=== PATIENT | male | born 1940 | race Caucasian/White ===

== ENCOUNTER 2022-01-28 08:34 | Outpatient (CLI) | payer MEDICARE, BC, SELFPAY ==
[2022-01-28 09:42] VITALS: BMI 35.5
--- NOTE | 2022-01-28 09:55 | NMCV_ITS ---
NM shweta perf SPECT r/s* [id number] Riki De Souza Age: 81 Gender: M : 1940 Exam Date: 01/28/2022 10:12 Ordering Phys: Annelise Walters MD ([email or web address]) Technologist: KAN Sepulveda Exam Location: [facility] [address] Indications: CHEST PAIN STRESS TEST [facility] IMAGE PROTOCOL Rest/Stress 1 Lexiscan Day Radiopharmaceutical Dose (mCi) Administration Site Administered by Rest: Tc-99m 10.7 IV KAN Connell Sestamibi Stress:Tc-99m 32.7 IV KAN Connell Sestamibi Rest: 28-Jan-2022 60 Discovery 630 Stress: 28-Jan-2022 30 Discovery 630 0.4mg Lexiscan. Images obtained in supine and prone position. SPECT RESULTS Technical Quality: Excellent Raw Data Analysis: Normal Image Corrections: No attenuation or motion correction applied Summed Stress Score: 1 Summed Rest Score: 0 Summed Difference Score: 1 PERFUSION FINDINGS SPECT images demonstrate homogeneous tracer distribution throughout the myocardium. FUNCTIONAL RESULTS (calculated via Gated SPECT) Stress Image LV EF (%): 49 Stress EDV (mL):187 TID: 1.04 Stress ESV (mL):96 FUNCTIONAL FINDINGS: The left ventricle is normal in size. Transient Ischemia Dilatation of 1. There is mildly reduced left ventricular systolic function. The left ventricular ejection fraction is mildly reduced with a value of 49%. No regional wall motion abnormality. Increased end-diastolic and end-systolic volumes. IMPRESSIONS 1. Myocardial perfusion imaging is normal. 2. The left ventricular ejection fraction is mildly reduced with a value of 49%. 3. No regional wall motion abnormality. 4. No EKG changes with Lexiscan infusion. Refer to separate report for details. 5. No prior similar studies to compare. Elvira Gonzalez MD (Electronically Signed) Final Date: 31 January 2022 16:48 S
--- NOTE | 2022-01-28 09:55 | ECG_ITS ---
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 Interpretive Statements Name of study: Lexiscan stress test Indication: Exertional shortness of breath PROCEDURE: At the baseline, the blood pressure was 183/99 mmHg with a heart rate of 62 bpm. The electrocardiogram showed normal sinus rhythm, leftward axis. 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 The Lexiscan was infused over a period of 20 seconds. A total of 0.4 milligrams of Lexiscan was infused. The stress phase was continued for a total of 5 minutes. Heart rate at the end of the stress phase was 76 bpm with a blood pressure of 198/102 mmHg. The EKG at the peak infusion revealed sinus rhythm with no significant ST-T wave changes. Sestamibi was injected 20 seconds after the Lexiscan infusion. Blood pressure at the end of the recovery phase was 198/102 mmHg with a heart rate of 75 beats per minute. CONCLUSION: 1. No significant EKG changes with the LexiScan infusion. 2. No LexiScan induced chest pain or cardiac arrhythmia. 3. Baseline hypertension with normal blood pressure and heart rate response. 4. Sestamibi/sestamibi perfusion scan pending; see separate report. Electronically Signed On 01-31-2022 16:26:53 [employer] by Elvira Gonzalez M.D. [email or web address]
[2022-01-28] MEDS: regadenoson 0.4 Mg/5 ml Syringe IVP (10:53)
[2022-01-28 11:01] VITALS: BP 183/99; PULSE 60
== END 2022-01-28 08:35 | disposition home or self-care (01) ==
LOC: RAD 08:35 → CDL 09:07
PROVIDERS: Family Provider Internal Medicine; PCP Internal Medicine; Visit Provider Internal Medicine Cardiovascular Disease
DX: R07.9 Chest pain, unspecified (principal); R06.02 Shortness of breath
CPT/HCPCS: 78452; 93017; A9500; J2785

== ENCOUNTER 2022-02-07 10:46 | Outpatient (CLI) | payer MEDICARE, BC, SELFPAY ==
--- NOTE | 2022-02-07 10:53 | USCV_ITS ---
Riki De Souza Age: 81 Gender: M : 1940 Exam Date: 02/07/2022 11:10 Ordering Phys: Annelise Walters MD ([email or web address]) Technologist: FERNANDO [place] [facility] [place]: sob BP: 167 / 82 HR: 66 Rhythm: Sinus Technical Quality: Adequate MEASUREMENTS (Male / Female) Normal Values 2D ECHO LV Diastolic Diameter PLAX 4.2 cm 4.2 - 5.9 / 3.9 - 5.3 cm LV Systolic Diameter PLAX 2.8 cm IVS Diastolic Thickness 1.9 cm 0.6 - 1.0 / 0.6 - 0.9 cm IVS Systolic Thickness 2.3 cm LVPW Diastolic Thickness 1.7 cm 0.6 - 1.0 / 0.6 - 0.9 cm LVPW Systolic Thickness 1.9 cm LVOT Diameter 2.0 cm LV Ejection Fraction 2D Teich 62.3 % LV Ejection Fraction MOD 2C 53.3 % LV Ejection Fraction 2C AL 55.4 % LA Diameter 4.1 cm LA Width 4.1 cm LA Height 5.8 cm RA Width 3.5 cm RA Height 5.5 cm Aorta at Sinotubular Diameter 3.1 cm M-MODE Aortic Annulus Diameter 3.3 cm LA Ao Ratio MM 1.2 MV E Point Septal Separation 1.4 cm DOPPLER AV Peak Velocity 119.0 cm/s LVOT Peak Velocity 97.0 cm/s AV Area Cont Eq vti 2.8 cm squared AV Area Cont Eq pk 2.6 cm squared MV Peak Velocity 84.0 cm/s MV Area PHT 5.0 cm squared Mitral E to A Ratio 0.8 MV E' Velocity 40.0 cm/s Mitral E to MV E' Ratio 7.9 Mitral E to LV E' Lateral Ratio 6.5 Mitral E to LV E' Septal Ratio 10.0 TR Peak Velocity 246.3 cm/s TR Peak Gradient 24.3 mmHg TR Mean Velocity 170.7 cm/s TR Mean Gradient 14.1 mmHg TR Velocity Time Integral 67.5 cm TV Peak E Velocity 50.0 cm/s Right Atrial Pressure 3.0 mmHg Pulmonary Artery Systolic Pressu 27.3 mmHg PV Peak Velocity 94.0 cm/s RV Acceleration Time 0.1 s RV Ejection Time 0.3 s RV AcT/ET 0.2 FINDINGS Left Ventricle Normal left ventricular size and systolic function, EF 59 %. Mild to moderate concentric left and right hypertrophy. Right Ventricle The right ventricle is normal in size and function. Right Atrium The right atrium is normal in size. Left Atrium Mildly increased left atrial size. Mitral Valve Mild mitral annular calcification. Mild mitral valve regurgitation. Aortic Valve Thickened aortic valve. Trace to mild aortic valve regurgitation. Tricuspid Valve Trace tricuspid valve regurgitation. Pulmonic Valve Pulmonic valve not well visualized. Pericardium Normal pericardium without effusion. Aorta Normal ascending aorta dimension. CONCLUSIONS Normal left ventricular size and systolic function, EF 59 %. Mild to moderate concentric left and right hypertrophy. Thickened aortic valve. Trace to mild aortic valve regurgitation. Mild mitral annular calcification. Mild mitral valve regurgitation. Mildly increased left atrial size. Estimated pulmonary artery peak systolic pressure of 27 mmHg There is no pericardial effusion. There are no intracardiac masses. No previous study is available for comparison. Dr Dominga Leon MD FACC (Electronically Signed) Final Date: 07 February 2022 17:40 S
== END 2022-02-07 10:47 | disposition home or self-care (01) ==
LOC: RAD 10:47
PROVIDERS: Family Provider Internal Medicine; PCP Internal Medicine; Visit Provider Internal Medicine Cardiovascular Disease
DX: R06.02 Shortness of breath (principal); R07.9 Chest pain, unspecified; I08.0 Rheumatic disorders of both mitral and aortic valves
CPT/HCPCS: 93306

== ENCOUNTER → 2022-02-26 11:26 | Outpatient (BNVA) | payer MEDICARE, BC, SELFPAY | PROVIDERS: Family Provider Internal Medicine; PCP Internal Medicine; Visit Provider Internal Medicine Cardiovascular Disease | DX: I11.0 Hypertensive heart disease with heart failure (principal); I50.33 Acute on chronic diastolic (congestive) heart failure; E78.5 Hyperlipidemia, unspecified | CPT/HCPCS: 80048; 83880; 99214 ==

== ENCOUNTER → 2022-08-28 10:33 | Outpatient (BNVA) | payer MEDICARE, BC, SELFPAY | PROVIDERS: PCP Internal Medicine; Visit Provider Internal Medicine Cardiovascular Disease | DX: I25.10 Atherosclerotic heart disease of native coronary artery without angina pectoris (principal); R06.02 Shortness of breath; I49.8 Other specified cardiac arrhythmias; E78.5 Hyperlipidemia, unspecified; I10 Essential (primary) hypertension | CPT/HCPCS: 99214 ==

== ENCOUNTER → 2023-02-26 13:41 | Outpatient (BNVA) | payer MEDICARE, BC, SELFPAY | PROVIDERS: PCP Internal Medicine; Visit Provider Internal Medicine Cardiovascular Disease | DX: I25.10 Atherosclerotic heart disease of native coronary artery without angina pectoris (principal); R53.83 Other fatigue; E78.5 Hyperlipidemia, unspecified; I10 Essential (primary) hypertension; I49.8 Other specified cardiac arrhythmias; Z79.82 Long term (current) use of aspirin | CPT/HCPCS: 99214 ==

== ENCOUNTER → 2023-03-25 09:10 | Outpatient (BNVA) | payer MEDICARE, BC, SELFPAY | PROVIDERS: PCP Internal Medicine; Visit Provider Internal Medicine Cardiovascular Disease | DX: R94.31 Abnormal electrocardiogram [ECG] [EKG] (principal); I44.0 Atrioventricular block, first degree; I49.1 Atrial premature depolarization; I44.7 Left bundle-branch block, unspecified | CPT/HCPCS: 93005 ==

== ENCOUNTER 2023-04-09 10:02 | Outpatient (CLI) | payer MEDICARE, BC, SELFPAY ==
--- NOTE | 2023-04-09 10:28 | FL_ITS ---
WS: [id number] Barium swallow and esophagram, 04/09/2023 Clinical Data: ESOPHAGEAL DYSPHAGIA Comparison: None. Fluoroscopy time: 1min [id number] # of spot films: 1 Findings: The patient swallowed the thick and thin barium, and it flowed through the hypopharynx without hesita tion. No stricture, mass, polyp or erosion was seen. The barium entered the esophagus and there was normal motility throughout. No reflux, stricture, poly p, mass, erosion or ulcer was noted. There was a small sliding hiatal hernia.. FL/FL barium swallow [id number] Impression: Small sliding hiatal hernia.
== END 2023-04-09 10:03 | disposition home or self-care (01) ==
LOC: RAD 10:16
PROVIDERS: PCP Internal Medicine; Visit Provider Internal Medicine
DX: R13.10 Dysphagia, unspecified (principal); K44.9 Diaphragmatic hernia without obstruction or gangrene
CPT/HCPCS: 74220

== ENCOUNTER 2023-04-11 07:36 | Outpatient (CLI) | payer MEDICARE, BC, SELFPAY ==
--- NOTE | 2023-04-11 07:53 | NM_ITS ---
WS: [id number] NUCLEAR MEDICINE HIDA SCAN WITH GALLBLADDER EJECTION FRACTION HISTORY: ABDOMINAL PAIN COMPARISON: Liver ultrasound 03/04/2023 TECHNIQUE: The patient was intravenously injected with 7.6 mCi of TC99m Mebrofenin. Immediate imaging over the right upper quadrant was followed by 5 minute image and additional images for a total of 12 0 minutes. Heterogeneous uptake throughout the liver. Very heterogeneous uptake noted especially within the RIGH T lobe. On a prior CT there are overlapping loops of GI tract which may be interfering with uptake fr om the liver. Better uptake within the LEFT lobe. Gallbladder activity is not identified throughout the entire exam. Activity in the proximal small bowel was seen by 60 minutes. Good washout of the radiotracer from the liver by 60 minutes. Post fatty meal. No activity in the gallbladder. NM/NM hepatobiliary w phar* [id number] IMPRESSION: 1. Abnormal HIDA scan. Heterogeneous appearance throughout the entire RIGHT lo be. The ultrasound was also limited due to patient's body habitus. Heterogeneit y may in part be due to chronic liver disease, mass or the overlying loops of G I tract interferes with sensitivity of the tracer uptake. Recommend abdominal C T with IV and oral contrast. 2. Gallbladder is not identified. Gallbladder dyskinesia/chronic cholecystitis . A contracted gallbladder was noted on a prior CT from 2015. No history of sohan or cholecystectomy. Common bile duct is patent.
== END 2023-04-11 07:37 | disposition home or self-care (01) ==
LOC: RAD 07:38
PROVIDERS: PCP Internal Medicine; Visit Provider Internal Medicine
DX: R10.9 Unspecified abdominal pain (principal); R13.19 Other dysphagia
CPT/HCPCS: 78227; A9537

== ENCOUNTER 2023-04-18 08:24 | Outpatient (CLI) | payer MEDICARE, BC, SELFPAY ==
--- NOTE | 2023-04-18 09:18 | CT_ITS ---
WS: [id number] CT ABDOMEN WITH CONTRAST HISTORY: ACUTE HEPATITIS Contiguous single phase 5 mm axial imaging performed to the abdomen. Oral contrast has not been provi ded. Coronal and sagittal reformats are submitted. All CT scans at [facility] use at least on e of these dose optimization techniques: automated exposure control; mA and/or kV adjustment per berta ent size (includes targeted exams where dose is matched to clinical indication); or iterative reconst ruction. IV CONTRAST: Omnipaque 350; 100 mL IV. Oral contrast: No DLP: 521.79 mGy.cm COMPARISON: 01/21/2016, 04/11/2023 Lower thorax: Lung bases are clear. Mild cardiomegaly. Moderate coronary artery calcifications as vis ualized. Small hiatal hernia. Liver/biliary system: Liver is normal size. No masses are identified. There is moderate intrahepatic and extrahepatic bile duct dilatation. Common bile duct measures 18 mm. No liver mass. The common duct bile duct at the pancreatic head is abnormal. Multifocal increased soft tissue in the lumen of the common bile duct. There is a increased nodule measuring 8 mm. Within the slightly dista l CBD there is an additional 10 mm hyperattenuating nodule. With distally near the ampulla of Vater t here is additional hyperattenuating nodule measuring 10 mm. There is mild wall thickening and enhance ment. Suspicious for tumor. Gallbladder: Gallbladder is contracted and the gallbladder fossa with no adjacent inflammation. Pancreas: Mildly hyperintense nodule noted at the pancreatic head is contiguous with the common bile duct abnormality. This nodule measures approximately 10 mm. Spleen: Normal size with granulomata. Adrenal glands: Normal. Right kidney: Mild renal atrophy with renal cysts. The largest cyst measures 18 mm. Left kidney: Too small to characterize hypodensities in the lower pole. Aorta: Mild atherosclerosis with no aneurysm. Lymphadenopathy: None. Free fluid: None. GI tract: Unremarkable. Abdominal wall: Unremarkable abdominal wall. No hernia. Visualized osseous structures: Increase in lumbar lordosis. CT/CT abdomen w con* [id number] IMPRESSION: 1. Marked dilatation of the intrahepatic and extrahepatic ducts. Common bile d uct measures 18 mm. 2. Multifocal soft tissue masses of increased density in the common bile duct. There are at least 3 nodules noted within the common bile duct with the most d istal at the ampulla of Vater. The central nodule measuring 10 mm is contiguous with the pancreatic head. Suggest evaluation by gastroenterology for possible ERCP and further evaluation of the common bile duct abnormality. Suspicious for cholangiocarcinoma. 3. No metastatic lesions within the liver. 4. Contracted gallbladder but no adjacent inflammation.
[2023-04-18 09:44] LABS: Blood Urea Nitrogen 30 mg/dL (8-23)
[2023-04-18] MEDS: iohexol 350 mg/mL 500 mL Btl (per mL) IV (09:48)
== END 2023-04-18 08:25 | disposition home or self-care (01) ==
LOC: RAD 08:28
PROVIDERS: PCP Internal Medicine; Visit Provider Internal Medicine
DX: B17.9 Acute viral hepatitis, unspecified (principal); K83.9 Disease of biliary tract, unspecified
CPT/HCPCS: 74160; 82565; 84520; Q9967

== ENCOUNTER → 2025-06-14 13:48 | Outpatient (BNVA) | payer MEDICARE, BC, SELFPAY | PROVIDERS: PCP Electrodiagnostic Medicine; Visit Provider Internal Medicine Cardiovascular Disease | DX: I25.10 Atherosclerotic heart disease of native coronary artery without angina pectoris (principal); I49.9 Cardiac arrhythmia, unspecified; R53.82 Chronic fatigue, unspecified; R00.1 Bradycardia, unspecified; I12.9 Hypertensive chronic kidney disease with stage 1 through stage 4 chronic kidney disease, or unspecified chronic kidney disease; N18.9 Chronic kidney disease, unspecified; E78.5 Hyperlipidemia, unspecified; Z79.82 Long term (current) use of aspirin; R06.02 Shortness of breath | CPT/HCPCS: 36415; 80048; 84443; 99214 ==

== ENCOUNTER → 2025-06-14 17:39 | Outpatient (BNVA) | payer MEDICARE, BC, SELFPAY | PROVIDERS: PCP Electrodiagnostic Medicine; Visit Provider Internal Medicine Cardiovascular Disease | DX: R06.02 Shortness of breath (principal); R00.1 Bradycardia, unspecified; I49.3 Ventricular premature depolarization; R00.0 Tachycardia, unspecified; I49.1 Atrial premature depolarization | CPT/HCPCS: 93242 ==